=== PATIENT | female | born 1990 | race Two or more races ===

== ENCOUNTER 2017-01-20 20:17 | Emergency (ER) | payer SELFPAY ==
[~2017-01-20] VITALS: Ht 170.2 cm; Wt 82.1 kg
[2017-01-20 20:37] VITALS: BP 129/80
== END 2017-01-20 22:28 | disposition home or self-care (01) ==
LOC: ER 20:29
DX: J02.9 Acute pharyngitis, unspecified (principal); H92.03 Otalgia, bilateral

== ENCOUNTER 2024-08-17 11:40 | Inpatient (IN) | payer MEDICAID ==
[~2024-08-17] VITALS: Ht 170.2 cm; Wt 63.4 kg
[2024-08-17 13:10] LABS: Basophils # (auto) 0 10 ^3/uL (0-0.2); Basophils % (auto) 0.3 % (0.0-2.0); Eosinophils # (auto) 0.1 10 ^3/uL (0-0.8); Eosinophils % (auto) 0.9 % (0.0-7.0); Hematocrit 45.7 % (36.0-46.0); Hemoglobin 15.7 g/dL (12.2-16.2); Lymphocytes # (auto) 1.1 10 ^3/uL (0.4-5.4); Lymphocytes % (auto) 16.5 % (10.0-50.0); Mean Corpuscular Hemoglobin 30.7 pg (28.0-32.0); Mean Corpuscular Hgb Conc. 34.4 g/dL (32.0-36.0); Mean Corpuscular Volume 89.4 fL (80.0-100.0); Monocytes # (auto) 0.5 10 ^3/uL (0-1.3); Monocytes % (auto) 7.4 % (0.0-12.0); Neutrophils % (auto) 74.9 % (37.0-80.0); Nucleated Red Blood Cells % 0.1 %; Platelet Count (auto) 217 10^3/uL (140-450); Red Blood Cells 5.11 10^6/uL (4.0-5.20); Red Cell Distribution Width 15.1 % (11.8-14.3); White Blood Cell 6.7 10^3/uL (4.4-10.8)
[2024-08-17] MEDS: SODIUM CHLORIDE 0.9% 1,000 ML IV ONE (13:18)
[2024-08-17] MEDS: THIAMINE 100mg/ml INJ (200mg/2ml VIAL) IV ONE (13:28)
[2024-08-17 13:35] LABS: Chloride 105 mmol/L (98-107); Potassium 3.9 mmol/L (3.5-5.1); Sodium 138 mmol/L (136-145)
[2024-08-17 13:36] LABS: Anion Gap 10 (5-15); Carbon Dioxide 23 mmol/L (20-31)
[2024-08-17 13:37] LABS: Calcium 11.1 mg/dL (8.7-10.4)
[2024-08-17 13:41] LABS: Glucose 134 mg/dL (74-106)
[2024-08-17 13:42] LABS: BUN/Creatinine Ratio 13.9 (10.0-20.0); Blood Urea Nitrogen 11 mg/dL (9-23)
[2024-08-17] MEDS ORDERED: MORPHINE SULFATE INJ 2 MG/ml SYRG IV PRN ×2 (14:45)
[2024-08-17] MEDS ORDERED: ACETAMINOPHEN 325 MG TAB PO PRN (14:45)
[2024-08-17] MEDS ORDERED: NITROGLYCERIN 0.4 MG SL TAB SL PRN (14:45)
[2024-08-17] MEDS ORDERED: ONDANSETRON HCL 4 MG/2 ML VIAL IV PRN (14:45)
[2024-08-17] MEDS ORDERED: HYDROcodone-ACET 5/325MG TAB PO PRN (14:45)
[2024-08-17 18:29] LABS: Amphetamine Screen, Urine Neg (NEGATIVE); Barbiturate Scree,Urine Neg (NEGATIVE); Benzodiazephine Screen, Urine Neg (NEGATIVE)
[2024-08-17 18:30] LABS: Cannabinoid Screen, Urine Pos (NEGATIVE); Cocaine Screen, Urine Neg (NEGATIVE); Opiate Scree,Urine Neg (NEGATIVE); Phencyclidine Screen, Urine Neg (NEGATIVE)
[2024-08-17 18:35] LABS: Urine Bacteria FEW /hpf (None Seen); Urine Blood Negative /uL (Negative); Urine Clarity Clear (Clear); Urine Color Light-Yellow (Yellow); Urine Protein, UAD Negative (Negative); Urine Specific Gravity 1.008 (1.001-1.035); Urine Urobilinogen Normal (Negative); Urine WBC 1 /hpf (0 - 5); Urine pH 5.5 (5.0-9.0)
[2024-08-17 18:45] VITALS: PULSE 81; RESP 16; O2SAT 99
[2024-08-17 19:15] VITALS: PULSE 84; RESP 16; O2SAT 99
[2024-08-17] MEDS: FOLIC ACID 1 MG, MULTIPLE VITAMIN 10 ML, MAGNESIUM SULF SDV 50% 8 MEQ, THIAMINE INJ 100... INJ SCH (19:20)
[2024-08-18 08:00] VITALS: PULSE 83; RESP 16; O2SAT 99
[2024-08-18] MEDS: ENOXAPARIN SOD 40 MG/0.4 ML SYRINGE SC SCH (10:28)
[2024-08-18 13:00] VITALS: BP 120/79; PULSE 87; RESP 20; TEMP 98; O2SAT 98
[2024-08-18] MEDS: chlordiazePOXIDE HCL 5 MG CAP PO PRN (14:24)
[2024-08-18 14:48] LABS: Basophils # (auto) 0.1 10 ^3/uL (0-0.2); Basophils % (auto) 0.7 % (0.0-2.0); Eosinophils # (auto) 0.1 10 ^3/uL (0-0.8); Eosinophils % (auto) 0.8 % (0.0-7.0); Hematocrit 42.1 % (36.0-46.0); Hemoglobin 14.5 g/dL (12.2-16.2); Lymphocytes # (auto) 1.8 10 ^3/uL (0.4-5.4); Lymphocytes % (auto) 22.9 % (10.0-50.0); Mean Corpuscular Hemoglobin 30.7 pg (28.0-32.0); Mean Corpuscular Hgb Conc. 34.6 g/dL (32.0-36.0); Mean Corpuscular Volume 88.8 fL (80.0-100.0); Monocytes # (auto) 0.8 10 ^3/uL (0-1.3); Monocytes % (auto) 10.4 % (0.0-12.0); Neutrophils % (auto) 65.2 % (37.0-80.0); Platelet Count (auto) 232 10^3/uL (140-450); Red Blood Cells 4.73 10^6/uL (4.0-5.20); Red Cell Distribution Width 14.5 % (11.8-14.3); White Blood Cell 7.7 10^3/uL (4.4-10.8)
[2024-08-18 15:02] LABS: Alanine Aminotransferase 11 U/L (7-40); Alkaline Phosphatase 57 U/L (46-116); Anion Gap 6 (5-15); Aspartate Aminotransferase 11 U/L (13-40); Bilirubin, Total 0.8 mg/dL (0.2-1.0); Blood Urea Nitrogen 7 mg/dL (9-23); Calcium 10.8 mg/dL (8.7-10.4); Carbon Dioxide 27 mmol/L (20-31); Chloride 107 mmol/L (98-107); Glucose 102 mg/dL (74-106); Potassium 3.5 mmol/L (3.5-5.1); Sodium 140 mmol/L (136-145); Total Protein 7.8 g/dL (5.7-8.2)
[2024-08-18 17:00] VITALS: BP 130/83; PULSE 93; RESP 16; TEMP 98.1; O2SAT 100
[2024-08-18 20:00] VITALS: PULSE 88
[2024-08-18 21:00] VITALS: BP 115/72; PULSE 98; RESP 20; TEMP 98.3; O2SAT 99
[2024-08-19] VITALS (8 sets, daily range): BP systolic 112–131; BP diastolic 68–84; PULSE 67–82; RESP 12–20; TEMP 97.6–98.6; O2SAT 97–99
[2024-08-19] MEDS: MAGNESIUM OXIDE 400 MG TAB PO SCH (17:21)
[2024-08-19] MEDS: MULTIPLE VITAMIN TAB PO SCH (17:21)
[2024-08-19] MEDS: THIAMINE HCL 100 MG TAB PO SCH (17:21)
[2024-08-19] MEDS: FOLIC ACID 1 MG TAB PO SCH (17:21)
[2024-08-20 01:00] VITALS: BP 138/72; PULSE 64; RESP 18; TEMP 97.4; O2SAT 99
[2024-08-20 05:00] VITALS: BP 118/72; PULSE 74; RESP 18; TEMP 98; O2SAT 98
[2024-08-20 07:39] VITALS: PULSE 74; RESP 18; O2SAT 99
[2024-08-20 08:00] VITALS: PULSE 70
== END 2024-08-20 11:40 | disposition home or self-care (01) | DRG 775 ==
LOC: ER 11:40 → TELE 14:36 → TELE-CENTR 08-18 12:44
PROVIDERS: ADMIT Internal Medicine; ATTEND Internal Medicine
DX: F10.230 Alcohol dependence with withdrawal, uncomplicated (principal); F32.9 Major depressive disorder, single episode, unspecified; F43.10 Post-traumatic stress disorder, unspecified; Z82.49 Family history of ischemic heart disease and other diseases of the circulatory system; Z79.899 Other long term (current) drug therapy; Z91.040 Latex allergy status; Z91.018 Allergy to other foods; Y90.0 Blood alcohol level of less than 20 mg/100 ml
CPT/HCPCS: 36415; 80048; 80053; 80307; 80320; 81001; 84484; 85025; 97163; G0378